=== PATIENT | male | born 1990 | race Caucasian/White ===

== ENCOUNTER 2024-08-31 12:29 | Inpatient (IN) | payer OTHER ==
[~2024-08-31] VITALS: Ht 175.3 cm; Wt 94.0 kg
[~2024-08-31 12:29] MED LIST: GLYCOPYRROLATE 0.2 MG/ML VIAL ONE; LIDOCAINE/PF 2% 5 ML VIAL ONE; PROPOFOL 1% 20 ML VIAL IVP ONE; SUCCINYLCHOLINE CHLORIDE 20 MG/ML 10 ML VIAL ONE
[2024-08-31] MEDS: SODIUM CHLORIDE 0.9% 2,000 ML IV ONE (14:50)
[2024-08-31 14:56] LABS: PLATELET COUNT (AUTO) 227 K/uL (150-450); RED BLOOD CELL COUNT(AUTO) 5.21 MIL/uL (4.50-5.90); RED CELL DISTRIBUTION WIDTH 13.2 % (11.5-14.5); WHITE BLOOD COUNT (AUTO) 5.6 K/uL (4.5-11.0)
[2024-08-31 15:01] LABS: CALCIUM, TOTAL 8.4 mg/dL (8.8-10.5); CREATININE 0.97 mg/dL (0.60-1.30); GLOMERULAR FILTR. RATE CALC > 60 mL/min (>60); GLUCOSE,RANDOM 95 mg/dL (70-110); SODIUM SERUM 140 mmol/L (136-145); UREA NITROGEN, BLOOD 20 mg/dL (7-18)
[2024-08-31 15:12] LABS: APPEARANCE,URINE CLEAR (CLEAR); GLUCOSE, URINE (UA) NEGATIVE (NEGATIVE); LEUKOCYTE ESTERASE ,URINE NEGATIVE (NEGATIVE); NITRATE,URINE NEGATIVE (NEGATIVE); OCCULT BLOOD,URINE NEGATIVE (NEGATIVE); PH,URINE DRUG SCREEN 6.5 (5.0-8.0); SPECIFIC GRAVITIY, URINE 1.022 (1.003-1.030)
[2024-08-31 15:18] LABS: ALCOHOL, URINE DRUG SCREEN NEGATIVE (NEGATIVE); AMPHET/METH SCREEN,URINE NEGATIVE (NEGATIVE); BARBITURATE SCREEN, URINE NEGATIVE (NEGATIVE); CANNABINOID SCREEN,URINE NEGATIVE (NEGATIVE); COCAINE SCREEN,URINE NEGATIVE (NEGATIVE); METHADONE SCREEN, URINE NEGATIVE (NEGATIVE)
[2024-08-31 15:18] LABS: ALCOHOL, BLOOD (SERUM) < 3 mg/dL (0-10)
[2024-08-31 15:29] LABS: SQUAMOUS EPITHELIAL CELL,UR Rare /LPF (None Seen)
[2024-08-31] MEDS ORDERED: ACETAMINOPHEN 325 MG TABLET PO PRN (19:00)
[2024-08-31] MEDS ORDERED: ONDANSETRON HCL 4 MG/2 ML VIAL IVP PRN (19:00)
[2024-08-31] MEDS ORDERED: IPRATROPIUM BROMIDE 0.5 MG/2.5 ML NEB SOLUTION NEB PRN (19:00)
[2024-08-31] MEDS ORDERED: ALBUTEROL SULFATE 2.5 MG/0.5 ML NEB SOLUTION NEB PRN (19:00)
[2024-08-31] MEDS: DOCUSATE SODIUM 100 MG CAPSULE PO SCH (20:14)
[2024-08-31] MEDS: PANTOPRAZOLE SODIUM 40 MG/VIAL IVP SCH (20:15)
[2024-08-31] MEDS: FAMOTIDINE 20 MG/2 ML VIAL IVP ONE (20:16)
[2024-08-31 21:30] VITALS: BP 130/78; PULSE 60; RESP 17; TEMP 97.4; O2SAT 97
[2024-09-01] MEDS: DEXAMETHASONE SOD PHOS 4 MG/ML VIAL IVP SCH (00:04)
[2024-09-01 05:45] VITALS: BP 96/62; PULSE 54; RESP 17; TEMP 97.9; O2SAT 96
[2024-09-01 06:43] LABS: PLATELET COUNT (AUTO) 238 K/uL (150-450); RED BLOOD CELL COUNT(AUTO) 5.38 MIL/uL (4.50-5.90); RED CELL DISTRIBUTION WIDTH 13.0 % (11.5-14.5); WHITE BLOOD COUNT (AUTO) 10.3 K/uL (4.5-11.0)
[2024-09-01 06:54] LABS: CALCIUM, TOTAL 8.5 mg/dL (8.8-10.5); CREATININE 0.95 mg/dL (0.60-1.30); GLOMERULAR FILTR. RATE CALC > 60 mL/min (>60); GLUCOSE,RANDOM 148 mg/dL (70-110); SODIUM SERUM 139 mmol/L (136-145); UREA NITROGEN, BLOOD 15 mg/dL (7-18)
[2024-09-01 08:00] VITALS: BP 119/80; PULSE 62; RESP 18; TEMP 98.1; O2SAT 96
[2024-09-01 12:00] VITALS: BP 115/73; PULSE 61; RESP 18; TEMP 97.7; O2SAT 97
[2024-09-01] MEDS ORDERED: PANT-31 PO (12:40)
[2024-09-01] MEDS ORDERED: DEXA0.5E4 PO (12:41)
[2024-09-01 15:09] VITALS: BP 120/69; PULSE 75; RESP 18; TEMP 98.6; O2SAT 97
[2024-09-02] MEDS ORDERED: HEPARIN SODIUM,PORCINE 5,000 UNITS/ML VIAL SQ SCH
== END 2024-09-01 15:40 | disposition home or self-care (01) | DRG 243 ==
LOC: EMS 12:29 → EDH 18:50 → 5S 20:26
PROVIDERS: ADMIT Internal Medicine; ATTEND Internal Medicine
PROC: 0CJS8ZZ Inspection of Larynx, Via Natural or Artificial Opening Endoscopic (ICD-10-PCS; 2024-08-31)
PROC: 0DJ08ZZ Inspection of Upper Intestinal Tract, Via Natural or Artificial Opening Endoscopic (ICD-10-PCS; principal; 2024-08-31 18:00)
DX: K20.0 Eosinophilic esophagitis (principal); J05.10 Acute epiglottitis without obstruction; K92.0 Hematemesis; J45.909 Unspecified asthma, uncomplicated; T18.128A Food in esophagus causing other injury, initial encounter; W44.F3XA Food entering into or through a natural orifice, initial encounter; Y93.89 Activity, other specified; Y92.89 Other specified places as the place of occurrence of the external cause; Y99.8 Other external cause status
CPT/HCPCS: 70360; 70490; 71046; 71250; 80048; 80307; 81001; 83690; 83735; 85025; 96360; 99285; G0480; J0330; J1100; J2470; J2704; J3490; J7030; 36415-L1; 36415-TC